=== PATIENT | female | born 1970 | race Caucasian/White ===

== ENCOUNTER 2019-01-15 12:27 | Emergency (ER) | payer OTHER, SELFPAY ==
[~2019-01-15] VITALS: Ht 154.9 cm; Wt 104.5 kg
[~2019-01-15 12:27] MED LIST: DIET PILL PO; PHEN-239 PO; TYLENOL #3; VENTAER INH; VOLT75TA
[2019-01-15 13:03] LABS: BASO # 0.1 10^3/uL (0.0-0.2); BASO % 0.8 % (0.0-1.0); EOS # 0.3 10^3/uL (0.0-0.5); EOS % 3.2 % (0.0-3.0); HEMATOCRIT 46.9 % (36.0-47.0); HEMOGLOBIN 15.3 g/dl (12.0-15.5); LYMPH # 3.3 10^3/uL (1.5-5.0); LYMPH % 32.6 % (24.0-44.0); MEAN CORPUSCULAR HEMOGLOBIN 29.7 pg (27.0-33.0); MEAN CORPUSCULAR HGB CONC 32.6 g/dl (32.0-36.5); MEAN CORPUSCULAR VOLUME 90.9 fl (80.0-96.0); MONO # 0.6 10^3/uL (0.0-0.8); MONO % 5.9 % (0.0-5.0); NEUTROPHILS # 5.7 10^3/uL (1.5-8.5); NEUTROPHILS % 57.2 % (36.0-66.0); PLATELET COUNT, AUTOMATED 348 10^3/uL (150-450); RED BLOOD COUNT 5.16 10^6/uL (4.00-5.40)
[2019-01-15] MEDS ORDERED: ASPIRIN 81 MG CHEW TABLET PO ONE (13:30)
--- NOTE | 2019-01-15 13:45 | REP ---
Clinical: Acute chest pain and fatigue . Comparison: 01/28/2015, 07/27/2015 . Technique: PA and lateral. Findings: The mediastinum and cardiac silhouette are normal. The lung valle are clear and without acute consolidation, effusion, or pneumothorax. The skeletal structures are intact and normal. Impression: 1. No acute cardiopulmonary process. Electronically Signed by Ghassan Robles MD 01/15/2019 01:37 P
[2019-01-15 13:48] LABS: ALBUMIN 3.7 GM/DL (3.2-5.2); ALT/SGPT 13 U/L (12-78); BILIRUBIN,DIRECT < 0.1 MG/DL (0.0-0.2); BILIRUBIN,TOTAL 0.4 MG/DL (0.2-1.0); BLOOD UREA NITROGEN 9 MG/DL (7-18); CALCIUM LEVEL 9.3 MG/DL (8.5-10.1); CARBON DIOXIDE LEVEL 29 MEQ/L (21-32); CHLORIDE LEVEL 108 MEQ/L (98-107); CK-MB VALUE MASS < 1.0 NG/ML (<3.6); CPK CREATINE PHOSPHOKINASE 157 U/L (26-192); CREATININE FOR GFR 0.75 MG/DL (0.55-1.30); GLOMERULAR FILTRATION RATE > 60.0 (>58); GLUCOSE, FASTING 93 MG/DL (70-100); LIPASE 144 U/L (73-393); MAGNESIUM LEVEL 2.2 MG/DL (1.8-2.4); MB/CK RELATIVE INDEX 0.64 (< OR =4); PHOSPHORUS LEVEL 3.5 MG/DL (2.5-4.9); POTASSIUM SERUM 4.1 MEQ/L (3.5-5.1); SODIUM LEVEL 143 MEQ/L (136-145); TOTAL PROTEIN 7.3 GM/DL (6.4-8.2); TROPONIN I < 0.02 NG/ML (< 0.10)
[2019-01-15 14:00] LABS: INR 0.96; PROTHROMBIN TIME 12.5 SECONDS (11.8-14.0)
[2019-01-15 17:09] LABS: CK-MB VALUE MASS < 1.0 NG/ML (<3.6); CPK CREATINE PHOSPHOKINASE 139 U/L (26-192); MB/CK RELATIVE INDEX 0.72 (< OR =4); TROPONIN I < 0.02 NG/ML (< 0.10)
[2019-01-15 18:04] VITALS: BP 116/76
--- NOTE | 2019-01-15 20:24 | ECGEPIP ---
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
--- NOTE | 2019-01-15 20:40 | ECGEPIP ---
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
== END 2019-01-15 18:23 | disposition home or self-care (01) ==
LOC: M ED 12:27
DX: R07.9 Chest pain, unspecified (principal); R53.83 Other fatigue; J45.909 Unspecified asthma, uncomplicated; K21.9 Gastro-esophageal reflux disease without esophagitis; F33.9 Major depressive disorder, recurrent, unspecified; F17.210 Nicotine dependence, cigarettes, uncomplicated

== ENCOUNTER 2019-05-27 15:51 | Emergency (ER) | payer MEDICAID, OTHER, SELFPAY ==
[~2019-05-27] VITALS: Ht 154.9 cm; Wt 105.2 kg
[2019-05-27] MEDS ORDERED: NS 1,000 ML IV ONE (16:45)
[2019-05-27] MEDS ORDERED: METOCLOPRAMIDE INJ 10MG/2ML VIAL (J2765) IV ONE (16:45)
[2019-05-27] MEDS ORDERED: REGL10TA6 PO (17:43)
[2019-05-27 18:01] VITALS: BP 127/73
== END 2019-05-27 18:29 | disposition home or self-care (01) ==
LOC: M ED 15:51
DX: R11.2 Nausea with vomiting, unspecified (principal); R19.7 Diarrhea, unspecified; F33.9 Major depressive disorder, recurrent, unspecified; F17.210 Nicotine dependence, cigarettes, uncomplicated
CPT/HCPCS: 80047; 96361; 96374; 99284; J2765

== ENCOUNTER 2022-07-07 16:47 | Emergency (ER) | payer SELFPAY ==
[~2022-07-07] VITALS: Ht 154.9 cm; Wt 102.3 kg
[~2022-07-07 16:47] MED LIST changes: +REGL10TA6 PO
[2022-07-07] MEDS ORDERED: predniSONE 20 MG TAB PO ONE (18:50)
[2022-07-07] MEDS ORDERED: KETOROLAC 60MG 2ML VIAL IM ONE (18:50)
[2022-07-07] MEDS ORDERED: AUGMENTIN 875 MG TAB PO ONE (18:50)
[2022-07-07] MEDS ORDERED: MAGICMW SSP (19:05)
[2022-07-07] MEDS ORDERED: IBUP-1022 PO (19:05)
[2022-07-07] MEDS ORDERED: HYDR-3713 PO (19:05)
[2022-07-07] MEDS ORDERED: PRED20TA PO (19:05)
[2022-07-07] MEDS ORDERED: AMOX875T2 PO (19:05)
[2022-07-07 19:22] VITALS: BP 142/93
== END 2022-07-07 19:28 | disposition home or self-care (01) ==
LOC: M ED 16:47
DX: R22.0 Localized swelling, mass and lump, head (principal); K02.9 Dental caries, unspecified; J45.909 Unspecified asthma, uncomplicated; F17.200 Nicotine dependence, unspecified, uncomplicated; Z79.52 Long term (current) use of systemic steroids; Z79.899 Other long term (current) drug therapy; Z79.2 Long term (current) use of antibiotics
CPT/HCPCS: 96372; 99283; J1885; J7512

== ENCOUNTER 2023-07-25 15:45 | Emergency (ER) | payer BC, SELFPAY ==
[~2023-07-25] VITALS: Ht 157.5 cm; Wt 108.0 kg
[~2023-07-25 15:45] MED LIST changes: +AMOX875T2 PO; +HYDR-3713 PO; +IBUP-1022 PO; +MAGICMW SSP; +PRED20TA PO
[2023-07-25 16:45] LABS: BASO # 0.1 10^3/uL (0.0-0.2); BASO % 0.6 % (0.0-1.0); EOS # 0.4 10^3/uL (0.0-0.5); HEMATOCRIT 43.9 % (36.0-47.0); HEMOGLOBIN 14.4 g/dl (12.0-15.5); LYMPH # 3.6 10^3/uL (1.5-5.0); LYMPH % 27.7 % (24.0-44.0); MEAN CORPUSCULAR HEMOGLOBIN 30.8 pg (27.0-33.0); MEAN CORPUSCULAR HGB CONC 32.8 g/dl (32.0-36.5); MEAN CORPUSCULAR VOLUME 93.8 fl (80.0-96.0); MONO # 0.8 10^3/uL (0.0-0.8); MONO % 5.9 % (2.0-8.0); NEUTROPHILS # 8.2 10^3/uL (1.5-8.5); NEUTROPHILS % 62.5 % (36.0-66.0); PLATELET COUNT, AUTOMATED 399 10^3/uL (150-450); RED BLOOD COUNT 4.68 10^6/uL (4.00-5.40); WHITE BLOOD COUNT 13.1 10^3/uL (4.0-10.0)
[2023-07-25 17:09] LABS: LIPASE 36 U/L (12-53)
[2023-07-25 17:11] LABS: ALBUMIN 3.5 G/DL (3.2-5.2); ALKALINE PHOSPHATASE 114 U/L (46-116); ALT/SGPT 16 U/L (7.0-40); AST/SGOT 23 U/L (<34); BILIRUBIN,DIRECT 0.2 MG/DL (<0.4); BILIRUBIN,TOTAL 0.5 MG/DL (0.3-1.2); BLOOD UREA NITROGEN 10 MG/DL (9-23); CALCIUM LEVEL 8.8 MG/DL (8.5-10.1); CARBON DIOXIDE LEVEL 29 MMOL/L (20-31); CHLORIDE LEVEL 108 MMOL/L (98-107); CREATININE FOR GFR 0.66 MG/DL (0.55-1.30); GLOMERULAR FILTRATION RATE > 60.0 (>51); GLUCOSE, FASTING 133 MG/DL (60-100); POTASSIUM SERUM 4.1 MMOL/L (3.5-5.1); SODIUM LEVEL 144 MMOL/L (136-145); TOTAL PROTEIN 6.6 G/DL (5.7-8.2)
[2023-07-25] MEDS ORDERED: ISOVUE-370 76% 100ML VIAL As Ordered ONE (19:20)
[2023-07-25] MEDS: KETOROLAC 30 MG/ML 1ML VIAL IV ONE (19:27)
[2023-07-25] MEDS ORDERED: METR-265 PO (20:09)
[2023-07-25] MEDS ORDERED: CIPR-249 PO (20:09)
[2023-07-25 20:24] VITALS: BP 174/90; TEMP 99.2; O2SAT 97
[2023-07-25] MEDS: metroNIDAZOLE (FLAGYL) 500MG TABLET PO ONE (20:26)
[2023-07-25] MEDS: CIPROFLOXACIN 500MG TABLET PO ONE (20:26)
== END 2023-07-25 20:29 | disposition home or self-care (01) ==
LOC: M ED 15:45
DX: K57.20 Diverticulitis of large intestine with perforation and abscess without bleeding (principal); K21.9 Gastro-esophageal reflux disease without esophagitis; J45.909 Unspecified asthma, uncomplicated; F17.200 Nicotine dependence, unspecified, uncomplicated; F10.10 Alcohol abuse, uncomplicated; Z87.19 Personal history of other diseases of the digestive system; Z79.2 Long term (current) use of antibiotics; Z79.899 Other long term (current) drug therapy
CPT/HCPCS: 74177; 80048; 80076; 81001; 83690; 85025; 96374; 99284; J1885; Q9967

== ENCOUNTER 2023-07-27 09:42 | Emergency (ER) | payer BC ==
[~2023-07-27] VITALS: Ht 157.5 cm; Wt 107.7 kg
[~2023-07-27 09:42] MED LIST changes: +CIPR-249 PO; +METR-265 PO
[2023-07-27 10:31] LABS: BASO # 0.1 10^3/uL (0.0-0.2); BASO % 0.5 % (0.0-1.0); EOS # 0.4 10^3/uL (0.0-0.5); EOS % 2.7 % (0.0-3.0); HEMATOCRIT 43.1 % (36.0-47.0); HEMOGLOBIN 13.9 g/dl (12.0-15.5); LYMPH # 2.5 10^3/uL (1.5-5.0); LYMPH % 18.7 % (24.0-44.0); MEAN CORPUSCULAR HEMOGLOBIN 30.5 pg (27.0-33.0); MEAN CORPUSCULAR HGB CONC 32.3 g/dl (32.0-36.5); MEAN CORPUSCULAR VOLUME 94.5 fl (80.0-96.0); MONO % 7.4 % (2.0-8.0); NEUTROPHILS # 9.4 10^3/uL (1.5-8.5); NEUTROPHILS % 70.2 % (36.0-66.0); PLATELET COUNT, AUTOMATED 359 10^3/uL (150-450); RED BLOOD COUNT 4.56 10^6/uL (4.00-5.40); WHITE BLOOD COUNT 13.4 10^3/uL (4.0-10.0)
[2023-07-27 10:41] LABS: INR 1.14; PARTIAL THROMBOPLASTIN TIME 26.5 SECONDS (24.8-34.2); PROTHROMBIN TIME 14.3 SECONDS (12.5-14.5)
[2023-07-27 10:59] LABS: LIPASE 24 U/L (12-53)
[2023-07-27 11:00] LABS: AMYLASE 25 U/L (30-118)
[2023-07-27 11:05] LABS: ALBUMIN 3.2 G/DL (3.2-5.2); ALKALINE PHOSPHATASE 101 U/L (46-116); ALT/SGPT 13 U/L (7.0-40); AST/SGOT 22 U/L (<34); BILIRUBIN,DIRECT 0.3 MG/DL (<0.4); BILIRUBIN,TOTAL 0.9 MG/DL (0.3-1.2); BLOOD UREA NITROGEN 7 MG/DL (9-23); CARBON DIOXIDE LEVEL 30 MMOL/L (20-31); CHLORIDE LEVEL 107 MMOL/L (98-107); CREATININE FOR GFR 0.67 MG/DL (0.55-1.30); GLOMERULAR FILTRATION RATE > 60.0 (>51); GLUCOSE, FASTING 119 MG/DL (60-100); POTASSIUM SERUM 4.1 MMOL/L (3.5-5.1); SODIUM LEVEL 140 MMOL/L (136-145); TOTAL PROTEIN 6.3 G/DL (5.7-8.2)
[2023-07-27] MEDS ORDERED: ISOVUE-370 76% 100ML VIAL As Ordered ONE (12:18)
[2023-07-27] MEDS: KETOROLAC 30 MG/ML 1ML VIAL IV ONE (12:36)
[2023-07-27] MEDS: PIPERACILLIN/TAZOBACTAM SOD 3.375 GM in D5W MINI-BAG PLUS 50 ML IV ONE (12:37)
[2023-07-27] MEDS: NS 1,000 ML IV ONE (12:37)
[2023-07-27 13:35] LABS: RSV AMPLIFICATION NEGATIVE (NEGATIVE)
[2023-07-27] MEDS ORDERED: METR-265 PO (14:35)
[2023-07-27] MEDS ORDERED: IBUP1TAB6 PO (14:35)
[2023-07-27] MEDS ORDERED: CIPR-249 PO (14:35)
[2023-07-27] MEDS ORDERED: HOME MED LIST COMPLETE! XX SCH (14:35)
[2023-07-27 15:40] VITALS: BP 132/89; TEMP 98.2; O2SAT 96
== END 2023-07-27 15:45 | disposition home or self-care (01) ==
LOC: M ED 09:42
DX: K57.32 Diverticulitis of large intestine without perforation or abscess without bleeding (principal); F32.A Depression, unspecified; K21.9 Gastro-esophageal reflux disease without esophagitis; J45.909 Unspecified asthma, uncomplicated; R51.9 Headache, unspecified; F17.200 Nicotine dependence, unspecified, uncomplicated; F10.10 Alcohol abuse, uncomplicated; Z79.2 Long term (current) use of antibiotics; Z79.1 Long term (current) use of non-steroidal anti-inflammatories (NSAID); Z79.899 Other long term (current) drug therapy
CPT/HCPCS: 74177; 80048; 80076; 81001; 82150; 83605; 83690; 85025; 85610; 85730; 87086; 87631; 96365; 96375; 99284; J1885; J2543; Q9967

== ENCOUNTER 2023-08-22 16:34 | Inpatient (IN) | payer BC ==
[~2023-08-22] VITALS: Ht 157.5 cm; Wt 109.3 kg
[~2023-08-22 16:34] MED LIST changes: +IBUP1TAB6 PO
[2023-08-22 17:18] LABS: BASO # 0.1 10^3/uL (0.0-0.2); BASO % 0.6 % (0.0-1.0); EOS # 0.3 10^3/uL (0.0-0.5); EOS % 2.3 % (0.0-3.0); HEMATOCRIT 41.4 % (36.0-47.0); HEMOGLOBIN 13.5 g/dl (12.0-15.5); LYMPH # 3.4 10^3/uL (1.5-5.0); LYMPH % 23.8 % (24.0-44.0); MEAN CORPUSCULAR HEMOGLOBIN 29.9 pg (27.0-33.0); MEAN CORPUSCULAR HGB CONC 32.6 g/dl (32.0-36.5); MEAN CORPUSCULAR VOLUME 91.6 fl (80.0-96.0); MONO % 6.6 % (2.0-8.0); NEUTROPHILS # 9.5 10^3/uL (1.5-8.5); NEUTROPHILS % 66.4 % (36.0-66.0); PLATELET COUNT, AUTOMATED 460 10^3/uL (150-450); RED BLOOD COUNT 4.52 10^6/uL (4.00-5.40); WHITE BLOOD COUNT 14.4 10^3/uL (4.0-10.0)
[2023-08-22 17:42] LABS: LIPASE 36 U/L (12-53)
[2023-08-22 17:44] LABS: ALBUMIN 3.3 G/DL (3.2-5.2); ALKALINE PHOSPHATASE 103 U/L (46-116); ALT/SGPT < 9 U/L (7.0-40); AST/SGOT 13 U/L (<34); BILIRUBIN,DIRECT 0.2 MG/DL (<0.4); BILIRUBIN,TOTAL 0.4 MG/DL (0.3-1.2); BLOOD UREA NITROGEN 10 MG/DL (9-23); CARBON DIOXIDE LEVEL 28 MMOL/L (20-31); CHLORIDE LEVEL 107 MMOL/L (98-107); CREATININE FOR GFR 0.63 MG/DL (0.55-1.30); GLOMERULAR FILTRATION RATE > 60.0 (>51); GLUCOSE, FASTING 93 MG/DL (60-100); POTASSIUM SERUM 3.9 MMOL/L (3.5-5.1); SODIUM LEVEL 142 MMOL/L (136-145); TOTAL PROTEIN 6.7 G/DL (5.7-8.2)
[2023-08-22] MEDS: PIPERACILLIN/TAZOBACTAM SOD 4.5 GM in D5W MINI-BAG PLUS 50 ML IV ONE (21:18)
[2023-08-22] MEDS: NS 1,000 ML IV ONE (21:18)
[2023-08-22] MEDS: GASTROGRAFIN SOLUTION 30ML PO SCH (21:18)
[2023-08-22] MEDS ORDERED: ISOVUE-370 76% 100ML VIAL As Ordered ONE (22:52)
[2023-08-23] MEDS ORDERED: MORPHINE 2 MG/ML 1ML VIAL IV PRN (01:30)
[2023-08-23] MEDS ORDERED: IBUP200T43 PO (01:31)
[2023-08-23] MEDS: ONDANSETRON 4MG 2ML VIAL IV ONE (01:33)
[2023-08-23] MEDS: MORPHINE 2 MG/ML 1ML VIAL IV PRN (01:34)
[2023-08-23] MEDS ORDERED: HOME MED LIST COMPLETE! XX SCH (01:35)
[2023-08-23] MEDS: PIPERACILLIN/TAZOBACTAM SOD 3.375 GM in D5W MINI-BAG PLUS 50 ML IV SCH (04:07)
[2023-08-23] MEDS: LR 1,000 ML IV SCH (04:07)
[2023-08-23 06:54] LABS: PROCALCITONIN <0.04 ng/ml
[2023-08-23 06:56] LABS: ALBUMIN 2.9 G/DL (3.2-5.2); ALKALINE PHOSPHATASE 101 U/L (46-116); ALT/SGPT < 9 U/L (7.0-40); AST/SGOT 16 U/L (<34); BILIRUBIN,TOTAL 0.7 MG/DL (0.3-1.2); BLOOD UREA NITROGEN 8 MG/DL (9-23); CALCIUM LEVEL 8.7 MG/DL (8.5-10.1); CARBON DIOXIDE LEVEL 30 MMOL/L (20-31); CHLORIDE LEVEL 107 MMOL/L (98-107); CREATININE FOR GFR 0.63 MG/DL (0.55-1.30); GLOMERULAR FILTRATION RATE > 60.0 (>51); GLUCOSE, FASTING 95 MG/DL (60-100); MAGNESIUM LEVEL 1.8 MG/DL (1.8-2.4); POTASSIUM SERUM 3.8 MMOL/L (3.5-5.1); SODIUM LEVEL 141 MMOL/L (136-145)
[2023-08-23] MEDS: KETOROLAC 30 MG/ML 1ML VIAL IV PRN (08:10)
[2023-08-23] MEDS ORDERED: LIDOCAINE 1% MDV 20ML VIAL As Ordered ONE (08:35)
[2023-08-23] MEDS ORDERED: fentaNYL 100 MCG/2 ML INJECTION As Ordered ONE (08:48)
[2023-08-23] MEDS ORDERED: MIDAZOLAM INJ 2MG/2ML VIAL As Ordered ONE (08:49)
[2023-08-23] MEDS: PANTOPRAZOLE 40MG VIAL IV SCH (11:34)
[2023-08-23 14:45] VITALS: BP 133/79; TEMP 97.8; O2SAT 91
[2023-08-23 20:00] VITALS: BP 115/56; TEMP 98.6; O2SAT 91
[2023-08-24 06:00] VITALS: BP 130/65; TEMP 98.3; O2SAT 93
[2023-08-24 06:11] LABS: BASO # 0.1 10^3/uL (0.0-0.2); BASO % 0.6 % (0.0-1.0); EOS # 0.4 10^3/uL (0.0-0.5); EOS % 3.2 % (0.0-3.0); HEMATOCRIT 37.4 % (36.0-47.0); HEMOGLOBIN 11.9 g/dl (12.0-15.5); LYMPH # 2.8 10^3/uL (1.5-5.0); LYMPH % 23.7 % (24.0-44.0); MEAN CORPUSCULAR HEMOGLOBIN 29.6 pg (27.0-33.0); MEAN CORPUSCULAR HGB CONC 31.8 g/dl (32.0-36.5); MONO % 8.8 % (2.0-8.0); NEUTROPHILS # 7.4 10^3/uL (1.5-8.5); NEUTROPHILS % 63.3 % (36.0-66.0); PLATELET COUNT, AUTOMATED 372 10^3/uL (150-450); RED BLOOD COUNT 4.02 10^6/uL (4.00-5.40); WHITE BLOOD COUNT 11.7 10^3/uL (4.0-10.0)
[2023-08-24 06:38] LABS: BLOOD UREA NITROGEN 8 MG/DL (9-23); CALCIUM LEVEL 8.4 MG/DL (8.5-10.1); CARBON DIOXIDE LEVEL 29 MMOL/L (20-31); CHLORIDE LEVEL 107 MMOL/L (98-107); CREATININE FOR GFR 0.64 MG/DL (0.55-1.30); GLOMERULAR FILTRATION RATE > 60.0 (>51); GLUCOSE, FASTING 99 MG/DL (60-100); POTASSIUM SERUM 4.1 MMOL/L (3.5-5.1); SODIUM LEVEL 142 MMOL/L (136-145)
[2023-08-24] MEDS ORDERED: CEFD1CAP9 PO (09:06)
[2023-08-24] MEDS ORDERED: METR-265 PO (09:06)
== END 2023-08-24 11:52 | disposition home or self-care (01) | DRG 244 ==
LOC: M ED 16:34 → M MS4PR 08-23 01:29 → M ED INP 08-23 01:29 → ENRESERV 08-23 12:46 → M MS4PR 08-23 14:00
PROVIDERS: ADMIT Family Medicine; ATTEND Family Medicine
PROC: 0W9J3ZZ Drainage of Pelvic Cavity, Percutaneous Approach (ICD-10-PCS; principal; 2023-08-23 08:34)
DX: K57.20 Diverticulitis of large intestine with perforation and abscess without bleeding (principal); Z68.41 Body mass index [BMI] 40.0-44.9, adult; E66.01 Morbid (severe) obesity due to excess calories; K21.9 Gastro-esophageal reflux disease without esophagitis; F32.A Depression, unspecified; Z83.3 Family history of diabetes mellitus; F17.210 Nicotine dependence, cigarettes, uncomplicated; Z79.899 Other long term (current) drug therapy; Z90.49 Acquired absence of other specified parts of digestive tract

== ENCOUNTER 2023-10-24 08:38 | Day surgery (SDC) | payer BC ==
[~2023-10-24] VITALS: Ht 157.5 cm; Wt 100.9 kg
[~2023-10-24 08:38] MED LIST changes: +CEFD1CAP9 PO; +IBUP200T43 PO
[2023-10-24] MEDS: NS 1,000 ML IV ONE (09:39)
[2023-10-24] MEDS ORDERED: propofoL 200 MG/20 ML VIAL As Ordered ONE (11:20)
[2023-10-24] MEDS ORDERED: LIDOCAINE 2% 100MG/5ML SDV (FOR ANES.) As Ordered ONE (11:20)
[2023-10-24 11:31] VITALS: TEMP 97.8
[2023-10-24 12:00] VITALS: BP 151/76; O2SAT 95
== END 2023-10-24 12:07 | disposition home or self-care (01) ==
LOC: M OPP 08:38
PROVIDERS: ATTEND Surgery
DX: D12.6 Benign neoplasm of colon, unspecified (principal); K64.4 Residual hemorrhoidal skin tags; K64.8 Other hemorrhoids; K57.32 Diverticulitis of large intestine without perforation or abscess without bleeding; K57.30 Diverticulosis of large intestine without perforation or abscess without bleeding; F17.200 Nicotine dependence, unspecified, uncomplicated; Z79.02 Long term (current) use of antithrombotics/antiplatelets